=== PATIENT | female | born 2000 | race Hispanic/Latino ===

== ENCOUNTER 2022-11-07 02:26 | Emergency (ER) | payer OTHER ==
[~2022-11-07] VITALS: Ht 160 cm; Wt 4.7 kg
[2022-11-07 02:41] VITALS: BP 120/72
== END 2022-11-07 03:02 | disposition home or self-care (01) ==
LOC: EDH 02:26
DX: K42.9 Umbilical hernia without obstruction or gangrene (principal)
CPT/HCPCS: 99282

== ENCOUNTER 2022-11-08 11:34 | Emergency (ER) | payer OTHER ==
[~2022-11-08] VITALS: Ht 160 cm; Wt 76.2 kg
[2022-11-08 11:35] VITALS: BP 121/83
== END 2022-11-08 16:39 | disposition home or self-care (01) ==
LOC: EDH 11:34
DX: B36.9 Superficial mycosis, unspecified (principal)
CPT/HCPCS: 99281